=== PATIENT | female | born 1995 | race Caucasian/White ===

== ENCOUNTER 2024-01-04 17:26 | Emergency (ER) | payer SELFPAY ==
[~2024-01-04] VITALS: Ht 165.1 cm; Wt 69.9 kg
[2024-01-04 20:09] VITALS: PULSE 77; RESP 18; TEMP 99.8; O2SAT 100
[2024-01-04 20:30] LABS: BASOPHILS % 0.3 % (0.0-1.0); EOSINOPHILS % 0.4 % (0.0-6.0); HEMATOCRIT 44.5 % (34.2-44.1); HEMOGLOBIN 14.5 g/dL (12.0-16.0); LYMPHOCYTES # (AUTO) 0.3 (1.0-3.2); MEAN CORPUSCULAR HEMOGLOBIN 31.4 pg (28-32); MEAN CORPUSCULAR HGB CONC 32.6 g/dL (31-35); MEAN CORPUSCULAR VOLUME 96.3 fL (81-99); MONOCYTES # (AUTO) 0.3 (0.2-0.8); MONOCYTES % 3.4 % (4.4-11.3); NEUTROPHILS # (AUTO) 8.7 (2.1-6.9); NEUTROPHILS % 92.4 % (38.7-80.0); PLATELET COUNT 184 x10e3/uL (140-360); RED BLOOD COUNT 4.62 x10e6/uL (3.6-5.1); RED CELL DISTRIBUTION WIDTH 12.2 % (11.7-14.4)
[2024-01-04] MEDS: SODIUM CHLORIDE FLUSH 10 ML SYR INJ PRN (20:33)
[2024-01-04] MEDS: ONDANSETRON HCL INJ 2MG/ML 2ML 2 MG/ML VIAL IV STA (20:33)
[2024-01-04] MEDS: SODIUM CHLORIDE 0.9% 1000ML 1,000 ML IV ONE (20:33)
[2024-01-04] MEDS: DICYCLOMINE HCL 20 MG/2 ML VIAL IM ONE (20:33)
[2024-01-04 20:49] LABS: ALBUMIN 3.7 g/dL (3.5-5.0); ALBUMIN/GLOBULIN RATIO 1.3 (0.8-2.0); ANION GAP 14.6 mmol/L (8-16); CALCIUM 8.4 mg/dL (8.4-10.2); CREATININE, SERUM 0.75 mg/dL (0.57-1.11); POTASSIUM 3.6 mmol/L (3.5-5.1); TOTAL PROTEIN 6.6 g/dL (6.5-8.1)
[2024-01-04 21:04] LABS: BILIRUBIN,URINE SMALL (NEGATIVE); CLARITY,URINE SL CLOUDY (CLEAR); COLOR,URINE YELLOW (YELLOW); GLUCOSE, URINE NEGATIVE (NEGATIVE); KETONES,URINE 2+ (NEGATIVE); LEUKOCYTE ESTERASE ,URINE NEGATIVE (NEGATIVE); NITRITE,URINE NEGATIVE (NEGATIVE); PH,URINE 6 (5 - 7); PROTEIN,URINE DIPSTICK NEGATIVE (NEGATIVE); URINE UROBILINOGEN 0.2 mg/dL (0.2 - 1)
[2024-01-04 21:20] LABS: BACTERIA,URINE MODERATE /HPF; EPITHELIAL CELLS,URINE FEW /LPF
[2024-01-04] MEDS ORDERED: ONDANSETRON ODT4 MG SL (21:52)
[2024-01-04] MEDS ORDERED: DICYCLOMINE HCL20 MG PO (21:52)
[2024-01-04] MEDS ORDERED: PANTOPRAZOLE SO40 MG PO (21:52)
== END 2024-01-04 22:35 | disposition left against medical advice (07) ==
LOC: ER 20:15
DX: R11.2 Nausea with vomiting, unspecified (principal); A08.4 Viral intestinal infection, unspecified; R10.9 Unspecified abdominal pain; F17.210 Nicotine dependence, cigarettes, uncomplicated
CPT/HCPCS: 36415; 74022; 80053; 81001; 81025; 83690; 85025